=== PATIENT | male | born 1940 | race Caucasian/White ===

== ENCOUNTER 2023-03-05 13:42 | Outpatient (CLI) | payer MEDICARE, OTHER, SELFPAY | END 2023-03-05 13:43 | disposition home or self-care (01) | LOC: OP CLINIC 13:44 | PROVIDERS: PCP Family Medicine; Visit Provider Internal Medicine Gastroenterology | DX: Z12.11 Encounter for screening for malignant neoplasm of colon (principal); K63.5 Polyp of colon; Q43.8 Other specified congenital malformations of intestine; Z86.010 Personal history of colon polyps | CPT/HCPCS: 45380; 88305; J2250; J3010 ==

== ENCOUNTER 2023-11-14 08:18 | Emergency (ER) | payer MEDICARE, OTHER, SELFPAY ==
[2023-11-14] VITALS (25 sets, daily range): BP systolic 123–137; BP diastolic 72–93; PULSE 51–61; RESP 18; TEMP 36.1; O2SAT 97–100; BMI 23.2
--- NOTE | 2023-11-14 08:51 | XR_ITS ---
Patient: ISRAEL SMITH Facility:?[facility] Patient ID:?[id number] Site Patient ID:?[id number] Site :?[id number] Study:?XRay-Chest 1V-11/14/2023 9:10:11 AM Ordering Physician:?DR. ZARATE Final Report: Indication: Chest pain, low energy. Technique: One view(s) of the chest. Comparison: None available. Findings: Tortuous descending thoracic aorta. Otherwise normal cardiomediastinal silhouette and pulmonary vasculature. Lungs are well inflated and clear. No focal consolidation, pleural effusion or pneumothorax. No acute osseous abnormality. Impression: No acute cardiopulmonary abnormality identified. Dictated by Gisselle Moffett MD @ 11/14/2023 9:15:44 AM Signed by:?Gisselle Moffett MD @11/14/2023 9:15:44 AM (Electronic Signature)
--- NOTE | 2023-11-14 08:52 | ED_ITS ---
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 He reports that he had a heart attack in 2018, had a single stent, there was another not a lot of other significant blockage noted at that time. He had this done at [facility] to [facility]. The patient reports the last 3 weeks he has had increasing dizziness some mild upper chest discomfort with activity. Sometimes he can work through the discomfort and get better with continued activity, sometimes it he will sit down and rest and it will be relieved. Has no leg swelling, or edema cook. He feels a little bit lightheaded at times when this happens as well no diaphoresis, no neck pain arm pain no radiation of discomfort. He has had no real follow-up stress testing since his stent placement. He does have high cholesterol is controlled with a statin. Does have family history in with his mother. He is nondiabetic. Related Data Allergies Allergy/AdvReac Type Severity Reaction Status Date / Time ciprofloxacin [From Cipro] Allergy Verified 11/14/23 08:36 Review of Systems Status of ROS: Reports: 6 or more systems reviewed and unremarkable except as noted in History and below PFSH PFSH Social History Non-prescribed substance use: denies use Exam Narrative: Exam Narrative: Objective: His vital signs are within normal limits Alert or x3 no distress, he feels just a little lightheaded today, but no chest pain no breathing difficulty HEENT is unremarkable no facial asymmetry mouth clear neck is supple chest is clear no rales or wheezing Heart rhythm regular 2/6 systolic murmur occasional ectopic beat noted Abdomen benign soft nontender no passing megaly Extremities are no edema neurologic nonfocal Neurologic is nonfocal upper extremities. Const: Vital Signs, click to edit/add: Vital Signs - 24 hr 11/14/23 08:28 11/14/23 08:38 11/14/23 08:45 Temperature 97 F L Pulse Rate 59 L 58 L Pulse Rate [Pulse Oximeter] 61 Respiratory Rate 18 Blood Pressure Blood Pressure [Le ft Upper Arm] 137/81 Pulse Oximetry 100 100 99 Oxygen Delivery Me thod Room Air 11/14/23 08:50 11/14/23 09:01 11/14/23 09:02 Temperature Pulse Rate 53 L 57 L Pulse Rate [Pulse Oximeter] Respiratory Rate Blood Pressure 132/72 Blood Pressure [Le ft Upper Arm] Pulse Oximetry 99 97 99 Oxygen Delivery Me thod 11/14/23 09:03 11/14/23 09:15 11/14/23 09:30 Temperature Pulse Rate 60 56 L 55 L Pulse Rate [Pulse Oximeter] Respiratory Rate Blood Pressure Blood Pressure [Le ft Upper Arm] Pulse Oximetry 98 97 98 Oxygen Delivery Me thod 11/14/23 09:31 11/14/23 09:45 11/14/23 10:00 Temperature Pulse Rate 54 L 54 L 53 L Pulse Rate [Pulse Oximeter] Respiratory Rate Blood Pressure 123/93 H Blood Pressure [Le ft Upper Arm] Pulse Oximetry 98 100 97 Oxygen Delivery Me thod 11/14/23 10:02 11/14/23 10:03 11/14/23 10:15 Temperature Pulse Rate 54 L 54 L 52 L Pulse Rate [Pulse Oximeter] Respiratory Rate Blood Pressure 135/79 Blood Pressure [Le ft Upper Arm] Pulse Oximetry 97 98 100 Oxygen Delivery Me thod 11/14/23 10:30 11/14/23 10:31 11/14/23 10:32 Temperature Pulse Rate 51 L 54 L 53 L Pulse Rate [Pulse Oximeter] Respiratory Rate Blood Pressure 137/75 Blood Pressure [Le ft Upper Arm] Pulse Oximetry 100 99 99 Oxygen Delivery Me thod 11/14/23 10:33 11/14/23 10:34 11/14/23 10:35 Temperature Pulse Rate 55 L 55 L 54 L Pulse Rate [Pulse Oximeter] Respiratory Rate Blood Pressure Blood Pressure [Le ft Upper Arm] Pulse Oximetry 97 98 99 Oxygen Delivery Me thod 11/14/23 10:36 11/14/23 10:37 11/14/23 10:38 Temperature Pulse Rate 57 L 55 L 55 L Pulse Rate [Pulse Oximeter] Respiratory Rate Blood Pressure Blood Pressure [Le ft Upper Arm] Pulse Oximetry 99 99 99 Oxygen Delivery Me thod 11/14/23 10:39 Temperature Pulse Rate 54 L Pulse Rate [Pulse Oximeter] Respiratory Rate Blood Pressure Blood Pressure [Le ft Upper Arm] Pulse Oximetry 100 Oxygen Delivery Me thod Course Vital Signs Vital signs: Initial Vital Signs Temperature 97 F L 11/14/23 08:28 Temperature Source Temporal Artery Scan 11/14/23 08:28 Pulse Rate 61 11/14/23 08:28 Pulse Rhythm Regular 11/14/23 08:28 Respiratory Rate 18 11/14/23 08:28 Respiratory Effort Normal, Spontaneous, Non-Labored 11/14/23 08:28 Respiratory Depth Normal 11/14/23 08:28 Respiratory Pattern Normal 11/14/23 08:28 Blood Pressure 137/81 11/14/23 08:28 Blood Pressure Mean 99 11/14/23 08:28 Blood Pressure Position Supine 11/14/23 08:28 Pulse Oximetry 100 11/14/23 08:28 Oxygen Delivery Method Room Air 11/14/23 08:28 Vital Signs Temperature 97 F L 11/14/23 08:28 Pulse Rate 61 11/14/23 08:28 Respiratory Rate 18 11/14/23 08:28 Blood Pressure 137/81 11/14/23 08:28 Pulse Oximetry 100 11/14/23 08:28 Oxygen Delivery Method Room Air 11/14/23 08:28 Temperature 97 F L 11/14/23 08:28 Pulse Rate 54 L 11/14/23 10:39 Respiratory Rate 18 11/14/23 08:28 Blood Pressure 137/75 11/14/23 10:31 Pulse Oximetry 100 11/14/23 10:39 Oxygen Delivery Method Room Air 11/14/23 08:28 Medications Administered Medications: Discontinued Medications Generic Name Dose Route Start Last Admin Trade Name Freq PRN Reason Stop Dose Admin Aspirin 324 mg 11/14/23 08:50 11/14/23 09:10 Aspirin 81 Mg Tab.Chew PO 11/14/23 08:51 324 mg ONCE ONE Administration Heparin Sodium (Porcine) 4,000 unit 11/14/23 09:51 11/14/23 10:27 Heparin 5,000 Unit/0.5 Ml Inj IVP 11/14/23 09:52 4,000 unit ONCE ONE Administration Sodium Chloride 500 mls @ 500 mls/hr 11/14/23 08:50 11/14/23 10:33 0.9 % Sodium Chloride 500 Ml IV 11/14/23 09:49 Infused .Q1H ONE Infusion Heparin Sodium/Dextrose 25,000 unit in 500 mls @ 0 mls/hr 11/14/23 10:00 11/14/23 10:29 Heparin IV 950 unit/hr .Q0M LATRICE 19 mls/hr Administration Protocol Per Protocol Medical Decision Making MDM Narrative Medical decision making narrative: 83-year-old white male with a history of cardiac stenting for coronary artery disease about 5 years ago, with the report of an ME. He had this done at [facility]. Now he has had symptoms consistent with unstable angina. He is fairly asymptomatic today in terms of his chest he does feel little ligh theaded at times. Will give him some IV fluid will give him aspirin. Will check troponin, his EKG by my read today shows normal sinus rhythm left anterior fascicular block he does have some Q-waves in lead 3 but not in 2 and AVF he has no obvious ST segment changes. No lateral T-wave changes. Will get a chest x- ray as well electrolytes lab studies. Will also check a viral studies for completeness. Discussed with Cardiology I suspect the patient needs CT angiogram or angiogram in follow-up. I am concerned he has a symptoms of unstable angina. And will discuss with Cardiology as mentioned above thanks Addendum 10:00 a.m. eat initial EKG shows normal sinus rhythm questionable left anterior fascicular block no acute ST T wave changes, would recommend IV heparin, aspirin given. The patient is not having chest pain currently. Discussed with Dr. Louie at [facility] who kindly accepts in transfer for potential angiogram. Patient was in agreement. Patient is stable for transfer. Patient has a high likelihood of having coronary disease and I think and entered angiogram would be the appropriate study as did Dr. Louie in consultation. Will start IV heparin, aspirin, transfer to [place] when able. Dr. Louie accepting on half on behalf of the hospitalist Lab Data Labs: Lab Results 11/14/23 Range/Units 08:58 WBC 4.20 L (4.50-11.00) K/uL RBC 4.10 L (4.30-5.90) m/uL Hgb 13.4 L (13.5-17.5) gm/dL Hct 41.2 (37.0-53.0) % MCV 101 H (80-100) fL MCH 33 (26-34) pg MCHC 33 (32-36) gm/dL RDW Coeff of Dung 13.1 (11.5-15.5) % Plt Count 125 L (140-440) K/uL Neut % (Auto) 63.8 (42.0-72.0) % Lymph % (Auto) 19.3 L (20-44) % Wythe % (Auto) 12.1 H (0.0-11.0) % Eos % (Auto) 4.3 (0.0-7.0) % Baso % (Auto) 0.5 (0.0-3.0) % Neut # (Auto) 2.70 (1.7-7.0) K/uL Lymph # (Auto) 0.80 L (0.90-2.90) K/uL Wythe # (Auto) 0.50 (0.00-0.90) K/UL Eos # (Auto) 0.20 (0.00-0.50) K/uL Baso # (Auto) 0.00 (0.00-0.30) K/uL Abs Immat Gran (auto) 0.00 (0.00-0.30) K/uL Imm/Tot Granulo (auto) 0.0 % INR 1.03 (0.91-1.10) APTT 30 (23-33) Seconds Sodium 139 (135-149) mmol/L Potassium 4.4 (3.6-5.1) mmol/L Chloride 102 (96-114) mmol/L Carbon Dioxide 29 (20-32) mmol/L Anion Gap 8 (7-15) mEq/L BUN 21 (7-30) mg/dL Creatinine 1.0 (0.5-1.5) mg/dL Estimated Creat Clear 65.42 Estimated GFR 76 ml/min Glucose 84 (60-115) mg/dL Calcium 9.6 (8.4-10.6) mg/dL Total Bilirubin 1.0 (0.1-1.5) mg/dL Direct Bilirubin 0.1 (0.0-0.5) mg/dL AST 30 (12-35) U/L ALT 17 (4-50) U/L Alkaline Phosphatase 48 (40-150) U/L Troponin I < 0.01 L (0.01-0.04) ng/mL C-Reactive Protein < 0.5 L (0.5-1.0) mg/dL NT-Pro-B Natriuret Pep 257 pg/mL Total Protein 6.8 (6.0-8.3) g/dL Albumin 4.1 (3.3-5.0) g/dL SARS-CoV-2 (PCR) Negative SARS-CoV-2 (Negative) Influenza Type A (PCR) Negative PCR FLU A (Negative) Influenza Type B (PCR) Negative PCR FLU B (Negative) RSV (PCR) Negative PCR RSV (Negative) POC Troponin I 0.01 (0.01-0.04) ng/ml Discharge Plan Discharge Clinical Impression: Chest pain, Unstable angina Patient Disposition: [facility] Condition: Stable Stand Alone Forms: MyHealth Info Instructions
[2023-11-14] MEDS: ASPIRIN 81 MG TAB.CHEW 324 MG PO (09:10)
[2023-11-14 09:11] LABS: Basophils Percent Auto 0.5 % (0.0-3.0); Eosinophils Percent Auto 4.3 % (0.0-7.0); Hematocrit 41.2 % (37.0-53.0); Hemoglobin* 13.4 gm/dL (13.5-17.5); Lymphocytes Percent Auto 19.3 % (20-44); Mean Corpuscular HGB Conc 33 gm/dL (32-36); Mean Corpuscular Hemoglobin 33 pg (26-34); Mean Corpuscular Volume 101 fL (80-100); Monocytes Percent Auto 12.1 % (0.0-11.0); Neutrophils Percent Auto 63.8 % (42.0-72.0); Platelet Count* 125 K/uL (140-440); RDW Coefficient of Variation % 13.1 % (11.5-15.5)
[2023-11-14 09:12] LABS: Slide Review Reflex No
[2023-11-14] MEDS: 0.9 % SODIUM CHLORIDE 500 ML 500 ML IV (09:20)
[2023-11-14 09:23] LABS: Troponin, Point-of-Care* 0.01 ng/ml (0.01-0.04)
[2023-11-14 09:46] LABS: Albumin* 4.1 g/dL (3.3-5.0); Chloride* 102 mmol/L (96-114)
[2023-11-14 09:47] LABS: Potassium* 4.4 mmol/L (3.6-5.1); Sodium* 139 mmol/L (135-149)
[2023-11-14 09:48] LABS: PCR FLU A Negative PCR FLU A (Negative); PCR FLU B Negative PCR FLU B (Negative); PCR RSV Negative PCR RSV (Negative); SARS PCR* Negative SARS-CoV-2 (Negative)
[2023-11-14 09:49] LABS: Anion Gap 8 mEq/L (7-15); Aspartate Amino Transferase* 30 U/L (12-35); Bilirubin Direct* 0.1 mg/dL (0.0-0.5); Carbon Dioxide* 29 mmol/L (20-32); Est. Creatinine Clearance* 65.42; Estimated Glomerular Filt Rate 76 ml/min; Total Protein* 6.8 g/dL (6.0-8.3)
[2023-11-14 09:50] LABS: Alanine Aminotransferase* 17 U/L (4-50); Alkaline Phosphatase* 48 U/L (40-150); Blood Urea Nitrogen* 21 mg/dL (7-30); Calcium* 9.6 mg/dL (8.4-10.6); Glucose* 84 mg/dL (60-115)
[2023-11-14 09:54] LABS: C Reactive Protein* < 0.5 mg/dL (0.5-1.0)
[2023-11-14 10:00] LABS: NT Pro B Type NatriureticPept* 257 pg/mL
[2023-11-14] MEDS: HEPARIN 5,000 UNIT/0.5 ML INJ 4000 UNIT IVP (10:27)
[2023-11-14 10:28] LABS: Troponin I* < 0.01 ng/mL (0.01-0.04)
[2023-11-14 10:29] LABS: INR 1.03 (0.91-1.10); Prothrombin Time 14.2 Seconds
[2023-11-14] MEDS: HEPARIN 25,000 UNIT/500 ML BAG 19 UNIT IV (10:29)
[2023-11-14 10:30] LABS: Partial Thromboplastin Time* 30 Seconds (23-33)
== END 2023-11-14 10:45 | disposition short-term general hospital (02) ==
PROVIDERS: Emergency Provider Family Medicine; PCP Family Medicine
DX: R07.9 Chest pain, unspecified (principal); I20.0 Unstable angina
CPT/HCPCS: 36415; 71045; 80048; 80076; 83880; 84484; 85025; 85610; 85730; 86140; 87631; 93005; 94761; 99284; 99285; A9270; J1644; J7030

== ENCOUNTER 2023-11-14 10:38 | Outpatient (CLI) | payer MEDICARE, OTHER, SELFPAY | END 2023-11-14 10:39 | disposition home or self-care (01) | LOC: AMB 11-22 22:40 | PROVIDERS: PCP Family Medicine; Visit Provider Family Medicine | DX: I20.0 Unstable angina (principal) | CPT/HCPCS: A0425; A0434 ==

== ENCOUNTER 2023-12-11 14:30 | Outpatient (RCR) | payer MEDICARE, OTHER, SELFPAY | END 2024-04-09 23:59 | disposition home or self-care (01) | PROVIDERS: PCP Family Medicine; Visit Provider Family Medicine | DX: M54.9 Dorsalgia, unspecified (principal); R29.3 Abnormal posture; S39.012A Strain of muscle, fascia and tendon of lower back, initial encounter; Z51.89 Encounter for other specified aftercare | CPT/HCPCS: 97110; 97140; 97162 ==

== ENCOUNTER 2025-01-22 06:47 | Day surgery (SDC) | payer MEDICARE, OTHER, SELFPAY ==
[2025-01-22] VITALS (13 sets, daily range): BP systolic 117–134; BP diastolic 65–88; PULSE 47–70; RESP 11–23; TEMP 36.6–36.7; O2SAT 96–100; BMI 24.2
[2025-01-22] MEDS: LACTATED RINGERS 1000 ML 1,000 ML 100 ML IV (07:00)
[2025-01-22] MEDS: SODIUM CHLORIDE 0.9 % (FLUSH) 10 ML SYRINGE IVF (07:30)
--- NOTE | 2025-01-22 08:20 | P.GSOP_ITS ---
Operative Note Date of procedure: 01/22/25 Pre-op diagnosis: Right inguinal hernia Post-op diagnosis: Same Type of Procedure: Laparoscopic right inguinal hernia repair with mesh Indications: The patient is an 84-year-old male with a history of a right inguinal hernia who developed an increasingly symptomatic right inguinal hernia. We discussed options and he elected to proceed with repair. Procedure Description: After discussing the risks and benefits of the procedure, the patient signed informed consent.? The operative site was marked and the patient was brought to the operating room and placed on the operating table in supine position.? Care was taken to pad the patient's pressure points.?? The patient was then intubated by anesthesia.?? The operative site was then prepped and draped in the usual sterile fashion.? A time-out was then performed. A curvilinear incision was made below the umbilicus. Dissection was carried down to subcutaneous tissue until the anterior rectus fascia was encountered. This was incised off the midline on the right. The rectus muscle fibers were then retracted exposing the posterior fascia. A port with a dissecting balloon was then introduced into the pre-preperitoneal space. This was inflated under direct vision. The balloon was deflated, removed, and a 10 mm working port was placed. The space was insufflated and a 10 mm 30-degree scope was then advanced into the space. Two 5 mm ports were placed in the midline under direct vision. Dissection began on the right side. The patient was noted to have a direct hernia. I started by dissecting laterally. There was no indirect defect noted. The peritoneum was dissected free from the cord structures. There was a very small cord lipoma which was reduced. My dissection then turned medially, reducing the direct hernia. Jarad's ligament and the pubic bone were exposed medially. F ollowing this, a piece of Bard 3DMax mesh for the appropriate side was placed into the abdomen. This was positioned with the marker pointed medially. A Tacker was used to attach the mesh medially at Jarad's ligament and 1 tack superomedially to the direct defect, with care to avoid the epigastric vessels and stay above the inguinal ligament. Once this was completed the mesh was held flat in position while the abdomen was desufflated. 10 mL of 0.5% Marcaine were instilled into the preperitoneal space through a port. The ports were removed. The fascia from the infraumbilical port was closed with 0 Vicryl. The skin incisions were closed with absorbable subcuticular suture. Sterile dressings were then applied. The scrotum was examined to ensure that both testicles were down. Instrument sponge and needle counts were correct at the end of the case. ? The patient was then woken and transported to the recovery area in stable condition. ? The patient tolerated the procedure well. Findings: Direct right inguinal hernia. Anesthesia: GETA Surgeon: Vicky Hampton MD Estimated blood loss (mL): 5 Condition: stable Disposition: PACU
--- NOTE | 2025-01-22 08:20 | W.PM.H&PU ---
History & Physical Update History & Physical Update H&P Reviewed and patient assessed: No changes noted
[2025-01-22] MEDS: CEFAZOLIN 1 GM inj IVP (08:25)
[2025-01-22] MEDS: BUPIVACAINE 0.25% 30 ML 25 ML INJECTION (09:00)
--- NOTE | 2025-01-22 09:27 | P.ANES_ITS ---
Anesthesia Charges Start Date/Time Anesthesia Start Date: 01/22/25 Anesthesia Start Time: 08:17 Stop Date/Time Anesthesia Stop Date: 01/22/25 Anesthesia Stop Time: 09:21 Summary Extremes of Age - Over 70 or under 1: WATER PUMPING STATION ENGINEER Coding CPT Codes CPT Codes: ANESTH SURG LOWER ABDOMEN - 82812 ([id number]) P3 - PATIENT W/SEVERE SYS DISEASE, QK - FABRIC AWNING REPAIRER 2-4 CNCRNT ANES PROC, QX - WATER PUMPING STATION ENGINEER SVC W/ MD MED DIRECTION Additional Codes: Summary - Extremes of Age - Over 70 or under 1: WATER PUMPING STATION ENGINEER ([id number])
--- NOTE | 2025-01-22 09:27 | P.ANES_ITS ---
Anesthesia Charges Start Date/Time Anesthesia Start Date: 01/22/25 Anesthesia Start Time: 08:17 Stop Date/Time Anesthesia Stop Date: 01/22/25 Anesthesia Stop Time: 09:21 Summary Extremes of Age - Over 70 or under 1: MDA Coding CPT Codes CPT Codes: ANESTH SURG LOWER ABDOMEN - 12304 ([id number]) P3 - PATIENT W/SEVERE SYS DISEASE, QK - MAINTENANCE MACHINE REPAIRER 2-4 CNCRNT ANES PROC, QX - SECURITY MESSENGER SVC W/ MD MED DIRECTION Additional Codes: Summary - Extremes of Age - Over 70 or under 1: MDA ([id number])
--- NOTE | 2025-01-22 09:27 | W.ANESCHARGE ---
Anesthesia Charges Start Date/Time Anesthesia Start Date: 01/22/25 Anesthesia Start Time: 08:17 Stop Date/Time Anesthesia Stop Date: 01/22/25 Anesthesia Stop Time: 09:21 Summary Extremes of Age - Over 70 or under 1: MDA Coding CPT Codes CPT Codes: ANESTH SURG LOWER ABDOMEN - 57694 ([id number]) P3 - PATIENT W/SEVERE SYS DISEASE, QK - FIELD CROP FARMWORKER 2-4 CNCRNT ANES PROC, QX - AIRCRAFT REFUELER SVC W/ MD MED DIRECTION Additional Codes: Summary - Extremes of Age - Over 70 or under 1: MDA ([id number])
--- NOTE | 2025-01-22 09:27 | W.ANESCHARGE ---
Anesthesia Charges Start Date/Time Anesthesia Start Date: 01/22/25 Anesthesia Start Time: 08:17 Stop Date/Time Anesthesia Stop Date: 01/22/25 Anesthesia Stop Time: 09:21 Summary Extremes of Age - Over 70 or under 1: FREIGHT CHECKER Coding CPT Codes CPT Codes: ANESTH SURG LOWER ABDOMEN - 50437 ([id number]) P3 - PATIENT W/SEVERE SYS DISEASE, QK - MODEL BUILDER 2-4 CNCRNT ANES PROC, QX - FREIGHT CHECKER SVC W/ MD MED DIRECTION Additional Codes: Summary - Extremes of Age - Over 70 or under 1: FREIGHT CHECKER ([id number])
== END 2025-01-22 11:15 | disposition home or self-care (01) ==
PROVIDERS: PCP Family Medicine; Visit Provider Surgery
PROC: (CPT 49650; principal; 2025-01-22 08:00)
DX: K40.90 Unilateral inguinal hernia, without obstruction or gangrene, not specified as recurrent (principal)
CPT/HCPCS: 49650; 00840; 99100; C1781; J0665; J0690; J1100; J2371; J2405; J2704; J3010; J3490; J7120

== ENCOUNTER 2025-09-04 05:58 | Emergency (ER) | payer MEDICARE, OTHER, SELFPAY ==
[2025-09-04] VITALS (18 sets, daily range): BP systolic 119–134; BP diastolic 62–74; PULSE 54–63; RESP 8–20; TEMP 35.9; O2SAT 91–100; BMI 24.0
--- OUTSIDE RECORDS SUMMARY | 2025-09-04 06:00 | XMS_ITS | Clinical Summary ---
Author Organization [facility] Address [address] [place] [address] Care Team Providers Care [employer] Receiver Name Role Phone Margie Akers MD Unavailable + Sascha Trejo MD Unavailable [phone] Maurice Savage MD Primary Care Provider Allergies Active AllergyReactionsCriticalityNoted FmdmTlorveejMcrvobbkhbuyqFygcl74/07/2007 Medications MedicationSigDispense QuantityRefillsLast FilledStart DateEnd DateStatus nitroglycerin (NITROSTAT) 0.4 mg sublingual tablet Indications:NSTEMI (non-ST elevated myocardial infarction) (HC)Place 1 tablet under the tongue every 5 minutes if needed. 25 tablet. 08/27/2020Active cholecalciferol (VITAMIN D3) 2,000 unit capsule 08/30/2020Active aspirin chewable (Sulema Chewable Aspirin) 81 mg chewable tablet Indications:CAD in [place] arteryChew 1 Tablet (81 mg) by mouth once daily.0 1Active melatonin 3 mg tablet Take 3 mg by mouth at bedtime.Active rosuvastatin (CRESTOR) 10 mg tablet Indications:Hyperlipidemia, unspecified hyperlipidemia typeTake 1 Tablet (10 mg) by mouth once daily with evening meal. 90 Tablet 5Active levothyroxine (SYNTHROID) 75 mcg tablet Indications:Hypothyroidism, unspecified typeTake 1 Tablet (75 mcg) by mouth before breakfast. 90 Tablet 5Active Active Problems ProblemNoted DateDiagnosed DateCAD (coronary artery disease)11/14/2023Insomnia, qlnpeaynur28/31/2022Bilateral asymmetric sensorineural hearing loss02/17/2019 NSTEMI 08/02/2018, SB mid LAD.08/04/2018BPH (benign prostatic hyperplasia) 08/01/2017Unspecified ujdimvzdqypnbz58/21/1256Egbtixivdhavhai99/07/2010 Overview (05/24/2010): Calcium oxalate stones. Benign neoplasm of colon09/21/2009 Overview (03/07/2023): Colonoscopy 08/2009 polyp repeat in 5 years Colonoscopy 09/2014 normal repeat in 5 years Colonoscopy 11/2019 multiple polyps, repeat in 3 years, PEG 8L Colonoscopy 02/2023 2-TA, lymphocytic colitis, repeat in 5 years, PEG 8L Dysthymic ziyybpzn48/16/2009Displacement of lumbar intervertebral disc without szrdxulthi19/04/2009Spondylolisthesis L3-Central spinal stenosis 11/18/2008 Resolved Problems ProblemNoted DateDiagnosed DateResolved DateInguinal hernia, right01/15/2025 07/21/2025Dyspnea on emjprxvp01/28/95243409/17/2023Leg DVT (deep venous thromboembolism), acute, leftNeurogenic claudication Hypoxia12Prolonged depressive reaction Encounters DateTypeDepartmentCare NicfXpanzzbywab51/04/2025 10:05 AM CSTOffice Visit [facility] [address] [place] [address] Maurice Savage MD Medicare ANNUAL (subsequent) Visit (85 year old)07/21/20257610Vixzyo16/30/2025Travel 06/05/2025 9:00 AM CDTOffice Visit [facility] [address] [place] [address] Lazarus Anaya [employer] Hearing Aid (Fitting)06/05/2025Travelfrom Last 3 Months Immunizations ImmunizationAdministration DatesNext DueAmb Influenza, Inactivated AIIV4 (Age 65+ Years) Preserv Free06/08/2020COVID-19 VACCINE SPIKEVAX (MODERNA 50MCG/0.5ML) 12YO+ PFS5COVID-19 vaccine (Moderna 50mcg/0.5mL) 12YO+ BIVALENT PF, MDV 03/09/2023,2COVID-19 vaccine (Octane5 International 30mcg/0.3mL) PF, MDV 11/20/2020,10/30/2020Influenza A (H1N1), Cnzhcbciybd94/24/2009Influenza A (H1N1), Inactivated (Age >=3 Years)09/09/2009Influenza, High-dose Inactivated 06/19/2025,06/17/2024,06/26/2018,05/31/2018,06/25/2017,06/01/2014Influenza, High-dose Quadrivalent Ticfgivnepo66/05/2023Influenza, IIV3 (Age >=3 years) 06/21/2015,06/25/2014,06/24/2013,05/27/2013,06/17/2012,06/20/2011,06/14/2010, 08/02/2009,07/14/2008,07/19/2007,07/19/2005,2003Influenza, IIV4 (=>6mos) MDV1Influenza, Inactivated AIIV4 (Age 65+ Years) Preserv Free06/06/2022 ,05/30/2021Influenza, Whole Virus06/27/2017Pneumococcal Conj 20-valent (Prevnar 20)07/17/2023neumococcal Poly,23-Valent (Pneumovax)07/27/2008Pneumococcal conj 13-Valent (Prevnar 13)08/17/2014RSV, Bivalent Vaccine Reconstituted (Abrysvo 120MCG/0.5mL)07/28/2023Td (Age >=7 Years)07/20/2006Tdap01/13/2022,08/08/2011 Zoster (Shingrix-RZV, recombinant)05/17/2019,03/01/2019Zoster (Zostavax-ZVL, live)07/24/2007 Family History Medical HistoryRelationNameCommentsCancerBrother 1TesticlePsychiatric illness Brother 1schizophreniaHeart failureBrother 2John Zaid Sudermannmitral valve prolapseHeart failureBrother 3Paul K. Sudermannmitral valve repairPneumonia FatherJacob Sudermanndied at 71 sepsis probablyThyroid DiseaseFatherJacob Sudermanntook thyroid medication for a timeHeart failureMaternal Grandfather Bran Bylerdied of heart disease 196OsteoarthritisMaternal GrandmotherNancy Gonzalo BylerCancerMotherHilda Aiyana SudermannUterineCancer-ovarianMotherHilda Aiyana Sudermanncancer of the uterusHeart failureMotherHilda Aiyana Sudermanndied at 98Hip fractureMotherHilda Aiyana SudermannOsteoarthritisMotherHilda Aiyana SudermannPolymyalgia rheumaticaMotherHilda Aiyana SudermannRheum arthritisMother Mimi Aiyana SudermannPMRDiabetesNo Family HistoryHeart DiseaseNo Family History HypertensionNo Family HistoryStrokeNo Family HistoryRelationNameStatusComments Brother 1DeceasedBrother 2John Zaid SudermannAliveBrother 3Paul K. Sudermann AliveFatherJacob SudermannAliveUnknown respiratory infectionMaternal Grandfather Bran BylerAliveMaternal GrandmotherNancy Gonzalo BylerAliveMotherHilda Aiyana SudermannAlive Social History Tobacco UseTypesPacks/DayYears UsedDateSmoking Tobacco: NeverSmokeless Tobacco: Never Tobacco Cessation:Counseling Given: No Alcohol UseStandard Drinks/WeekCommentsNot Currently0 (1 standard drink = 0.6 oz pure alcohol)occasional winePHQ-2AnswerDate RecordedPHQ-2 TOTAL VFXOV38009/20/2024 Social ConnectionsAnswerDate RecordedDo you often feel lonely or isolated from those around you?lcohol UseAnswerDate RecordedHow often do you have a drink containing alcohol?How many drinks containing alcohol do you have on a typical day when you are drinking?011/04/2025How often do you have five or more drinks on one occasion?Financial Resource StrainAnswer Date RecordedDifficulty of Paying Living Nhoswcjf830/13/2025Difficulty of Paying Living ExpensesNot on file12/28/2024Food InsecurityAnswerDate RecordedDo you worry your food will run out before you are able to buy more? Transportation NeedsAnswerDate RecordedDoes lack of transportation keep you from medical appointments?Does lack of transportation keep you from work, meetings or getting things that you need?Housing StabilityAnswerDate RecordedWhat is your housing situation today?Interpersonal Safety AnswerDate RecordedAre you being hit, kicked, pushed or yelled at (see row info)?No11/14/2023Interpersonal Safety Abuse 12 - 18Not on file11/14/2023 Interpersonal Safety Ambulatory VulnerabilityNot on file11/14/2023Utilities AnswerDate RecordedDo you have trouble paying for utilities (for example, heat, electricity, water, phone)?Sex and Gender InformationValueDate RecordedSex Assigned at TxhxeRefl58/15/2021 2:23 PM CDTLegal OvpGrpg0309/30/2012 5:24 AM CSTGender EetgzwgkSond57/28/2024 5:29 PM CDTSexual OrientationChoose not to ojiabdvv70/28/2024 5:29 PM CDTOccupationIndustryJob Start DateJob End Date professorNot on fileNot on fileNot on file Last Filed Vital Signs Vital SignReadingTime TakenCommentsBlood Ucglhnkb879/7311 9:57 AM HARDWARE ASSEMBLER Sjkgq361607/21/2025 9:57 AM QLJZjivbmxqogb66.7 ??C (98.1 ??F)01/16/2025 10:00 AM CDTRespiratory Usks796201/16/2025 10:00 AM CDTOxygen Lcujbbcpqt09%07/21/2025 9:57 AM CSTInhaled Oxygen Concentration--Zyinow43.3 kg (181 lb 6.4 oz)07/21/2025 9:57 AM MLPRakzjc871.4 cm (6' 0.21)07/21/2025 9:57 AM CSTBody Mass Index24.46 07/21/2025 9:57 AM HARDWARE ASSEMBLER Plan of Treatment Health MaintenanceDue DateLast DoneCommentsCOVID-19 vaccine series ( season), 12/30/2024, 06/17/2024, Additional history exists BMI (ht and wt on same day) for age 18+, 01/16/2025, 07/18/2024, Additional history existsDepression screening for age 12+07/21/2026 07/21/2025, 07/18/2024, 07/17/2023, Additional history existsMedicare Wellness for age 65+, 07/18/2024, 07/17/2023, Additional history existsTetanus maomacl93/, 08/08/2011, 07/20/2006Zoster (shingles) series for age 50+Dghmzezbt22/31/2019, 03/01/2019, 07/24/2007 Pneumococcal series for age 50+Fcdsrsnxj07/31/2023, 08/17/2014, 07/27/2008RSV vaccine for adults or nxunjppdnXthelnmro22/11/2023Influenza VaccineCompleted 06/19/2025, 06/17/2024, 06/06/2022, Additional history existsHepatitis B series for 19+Aged OutNo longer eligible based on patient's age to complete this topic Medical Devices ImplantedTypeAreaManufacturerDevice IdentifierShelf Expiration DateModel / Serial / [id number] Matrix 2.5x10cm [place] Dbm Implanted:Qty: 1 on 07/31/2017 by Wilton Arrieta MD at Explanted:at (Quantity not on file)N/A: Spine Medtronic Spine/Ortho/09/[id number]# / [id number] / [id number] 1-4mm 60cc Medtronic Fine Canclls Freeze Dried Implanted:Qty: 1 on 07/31/2017 by Wilton Arrieta MD at Explanted:at (Quantity not on file)N/A: Spine Medtronic Spine/Ortho06/02/[id number]# / [id number] / Screw Lmbr Post 6.5x50mm Vitality Va - [id number] Implanted:Qty: 6 on 07/31/2017 by Wilton Arrieta MD at N/A: [employer]ine[employer] [id number]# / / Set Screw Lmbr 5.5-6mm Vitality Shear Off - [id number] Implanted:Qty: 6 on 07/31/2017 by Wilton Arrieta MD at N/A: [employer] [id number]# / / Tk Lmbr 70x5.5mm Vitality Cvd Titnm - [id number] Implanted:Qty: 2 on 07/31/2017 by Wilton Arrieta MD at N/A: [employer] [id number]# / / Procedures Procedure NamePriorityDate/TimeAssociated DiagnosisCommentsVITAMIN C41Gposzko 07/21/2025 10:41 AM HARDWARE ASSEMBLER B12 deficiency TSH WITH WKQFQSAxtxnhz28/04/2025 10:41 AM HARDWARE ASSEMBLER Hypothyroidism, unspecified type BASIC METABOLIC CRIFJFbsjseb59/04/2025 10:41 AM HARDWARE ASSEMBLER Coronary artery disease, unspecified vessel or lesion type, unspecified whether angina present, unspecified whether [place] or transplanted heart VITAMIN D 25 (DEFICIENCY)Wbskbyf7207/21/2025 10:41 AM HARDWARE ASSEMBLER Vitamin D deficiency LIPID PANEL W REFLEX MEASURED VFPEzuofkt33/04/2025 10:41 AM HARDWARE ASSEMBLER Hyperlipidemia, unspecified hyperlipidemia type from Last 3 Months Results * TSH WITH REFLEX (07/21/2025 10:41 AM HARDWARE ASSEMBLER)ComponentValueRef RangeTest Method Analysis TimePerformed AtPathologist SignatureTSH W/REFLEX TO FT40.630.40 - 4.50 mIU/L109/21/2024 2:26 AM CSTQUEST DIAGNOSTICSSpecimen (Source)Anatomical Location / LateralityCollection Method / VolumeCollection TimeReceived Time BloodBLOOD SPECIMEN / UnknownQuest Collect / Hsiqncv7007/21/2025 10:41 AM HARDWARE ASSEMBLER 07/21/2025 10:41 AM HARDWARE ASSEMBLER Narrative Authorizing ProviderResult TypeResult StatusRichard Lina Savage MDCHEMISTRY Final ResultPerforming OrganizationAddressCity/State/ZIP CodePhone Number [facility] [place] [id number] [place] [address], * LIPID PANEL W REFLEX MEASURED LDL (07/21/2025 10:41 AM HARDWARE ASSEMBLER)ComponentValueRef RangeTest MethodAnalysis TimePerformed AtPathologist SignatureCHOLESTEROL, HZGAR173<200 mg/dL07/22/2025 5:09 AM CSTQUEST ZGZPRVEWGFPOCLLQJCTREQMC04<150 mg/dL07/22/2025 5:09 AM CSTQUEST DIAGNOSTICSHDL EYUSEHKKMMY45> OR = 40 mg/dL 07/22/2025 5:09 AM CSTQUEST DIAGNOSTICSNON HDL RBSWBIXEMSN22<130 mg/dL (calc) 07/22/2025 5:09 AM CSTQUEST DIAGNOSTICSComment: For patients with diabetes plus 1 major ASCVD risk factor, treating to a non-HDL-C goal of <100 mg/dL (LDL-C of <70 mg/dL) is considered a therapeutic option. CHOL/HDLC RATIO1.9<5.0 (calc)07/22/2025 5:09 AM CSTQUEST DIAGNOSTICS LDL-NDTDKGMIZYE81fg/dL (calc)07/22/2025 5:09 AM CSTQUEST DIAGNOSTICSComment: Reference range: <100 Desirable range <100 mg/dL for primary prevention; <70 mg/dL for patients with CHD or diabetic patients with > or = 2 CHD risk factors. LDL-C is now calculated using the Hernan calculation, which is a validated novel method providing better accuracy than the Friedewald equation in the estimation of LDL-C. Iban ROMERO et al. PATTI. 2013;310(19): 3154-7491 (http://education.Zoned Nutrition/faq/JMA809) Specimen (Source)Anatomical Location / LateralityCollection Method / Volume Collection TimeReceived TimeBloodBLOOD SPECIMEN / UnknownQuest Collect / Unknown 07/21/2025 10:41 AM CST07/21/2025 10:41 AM HARDWARE ASSEMBLER Narrative Authorizing ProviderResult TypeResult StatusRichdella Savage MDCHEMISTRY Final ResultPerforming OrganizationAddressCity/State/ZIP CodePhone Number Portal [facility] [address] [place] [address], * VITAMIN D 25 (DEFICIENCY) (07/21/2025 10:41 AM HARDWARE ASSEMBLER)ComponentValueRef RangeTest MethodAnalysis TimePerformed AtPathologist SignatureVITAMIN D,25-OH,TOTAL,IA58 30 - 100 ng/mL07/22/2025 2:36 AM CSTQUEST DIAGNOSTICSComment: Vitamin D Status ? 25-OH Vitamin D: Deficiency: <20 ng/mL Insufficiency: ? 20 - 29 ng/mL Optimal: > or = 30 ng/mL For 25-OH Vitamin D testing on patients on D2-supplementation and patients for whom quantitation of D2 and D3 fractions is required, the QuestAssureD(TM) 25-OH VIT D, (D2,D3), LC/MS/MS is recommended: order code 76431 (patients >2yrs). See Note 1 Note 1 For additional information, please refer to http://education.Zoned Nutrition/faq/STJ428 (This link is being provided for informational/ educational purposes only.) Specimen (Source)Anatomical Location / LateralityCollection Method / Volume Collection TimeReceived TimeBloodBLOOD SPECIMEN / UnknownQuest Collect / Unknown 07/21/2025 10:41 AM CST07/21/2025 10:41 AM HARDWARE ASSEMBLER Narrative Authorizing ProviderResult TypeResult StatusMaurice Savage MDSEND OUTS Final ResultPerforming OrganizationAddressCity/State/ZIP CodePhone Number Portal [facility] [address] [place] [address], * VITAMIN B12 (07/21/2025 10:41 AM HARDWARE ASSEMBLER)ComponentValueRef RangeTest Method Analysis TimePerformed AtPathologist SignatureVITAMIN [id number] - 1100 pg/mL 07/22/2025 2:26 AM CSTQUEST DIAGNOSTICSSpecimen (Source)Anatomical Location / LateralityCollection Method / VolumeCollection TimeReceived TimeBloodBLOOD SPECIMEN / UnknownQuest Collect / Tiaqkep3807/21/2025 10:41 AM CST07/21/2025 10:41 AM HARDWARE ASSEMBLER Narrative Authorizing ProviderResult TypeResult StatusRichard Lina Savage MDCHEMISTRY Final ResultPerforming OrganizationAddressCity/State/ZIP CodePhone Number [facility] [place] [id number] [place] [address], * BASIC METABOLIC PANEL (07/21/2025 10:41 AM HARDWARE ASSEMBLER)ComponentValueRef RangeTest MethodAnalysis TimePerformed AtPathologist MsxpdkzcwZNVKNS638264 - 146 mmol/L 07/22/2025 5:09 AM CSTQUEST DIAGNOSTICSPOTASSIUM5.03.5 - 5.3 mmol/L109/21/2024 5:09 AM CSTQUEST DIAGNOSTICSCARBON EQLGYXZ2727 - 32 mmol/L109/21/2024 5:09 AM CSTQUEST OYMEBDLZZOUJOQYJBA6386 - 99 mg/dL07/22/2025 5:09 AM CSTQUEST DIAGNOSTICSComment: ? Fasting reference interval CALCIUM9.68.6 - 10.3 mg/dL07/22/2025 5:09 AM CSTQUEST DIAGNOSTICSCREATININE1.19 0.70 - 1.22 mg/dL07/22/2025 5:09 AM CSTQUEST DIAGNOSTICSBUN/CREATININE RATIOSEE NOTE:6 - (calc)07/22/2025 5:09 AM CSTQUEST DIAGNOSTICSComment: ?? Not Reported: BUN and Creatinine are within ?? reference range. ? EGFR61> OR = 60 mL/min/1.17s61907/22/2025 5:09 AM CSTQUEST DIAGNOSTICSUREA NITROGEN (BUN)177 - 25 mg/dL07/22/2025 5:09 AM CSTQUEST DIAGNOSTICSELECTROLYTE DEFCNNC68 - 17 mmol/L (calc)07/22/2025 5:09 AM CSTQUEST PCWEVBPQZEBRFCGOONJ94243 - 110 mmol/L109/21/2024 5:09 AM CSTQUEST DIAGNOSTICSSpecimen (Source)Anatomical Location / LateralityCollection Method / VolumeCollection TimeReceived TimeBlood BLOOD SPECIMEN / UnknownQuest Collect / Onxvhzg8707/21/2025 10:41 AM CST07/21/2025 10:41 AM HARDWARE ASSEMBLER Narrative Authorizing ProviderResult TypeResult StatusRichdella Savage MDCHEMISTRY Final ResultPerforming OrganizationAddressCity/State/ZIP CodePhone Number [facility] [address] [place] [address], [place] [phone] from Last 3 Months Insurance Advance Directives * Full Code (Latest Code Status on File) Date ActivatedDate InactivatedComments11/14/2023 11:57 AM11/15/2023 5:23 PM QuestionAnswerCommentsCode Status Discussion:* Reviewed Preferences * Full Code Date ActivatedDate RklrsjqlqvaPjqlqekl97/16/2018 10:31 PM08/05/2018 4:04 PM * Full Code Date ActivatedDate IfeveqkxpzlMfwymhaq93/14/2017 7:34 PM08/03/2017 3:43 PM Care Teams Team MemberRelationshipSpecialtyStart DateEnd Date Maurice Savage MD [address] [place] [address] PCP - GeneralFamily Practice12/02/20 Margie Akers MD [address] [place] [address] Fgxkytsbuvx64/29/13 Sascha Trejo MD [address] [place] [address] Sports Jqealdcx72/29/13
--- NOTE | 2025-09-04 06:03 | ED_ITS ---
HPI - General Adult General Time Seen by Provider: 06:03 <Mati Galeana MD - Last Filed: 09/10/25 15:43> Date Seen: 09/04/25 <Mati Galeana MD - Last Filed: 09/10/25 15:43> Chief complaint: Nausea/Vomiting <Mati Galeana MD - Last Filed: 09/10/25 15:43> Stated complaint: Vomiting <Mati Galeana MD - Last Filed: 09/10/25 15:43> Time Seen by Provider: 09/04/25 06:03 <Mati Galeana MD - Last Filed: 09/10/25 15:43> Source: patient and family <Mati Galeana MD - Last Filed: 09/10/25 15:43> Mode of arrival: ambulatory <Mati Galeana MD - Last Filed: 09/10/25 15:43> Limitations: no limitations <Mati Galeana MD - Last Filed: 09/10/25 15:43> History of Present Illness HPI narrative: 85-year-old male who presents today with vomiting. Patient notes abrupt onset of vertigo and vomiting last night about 10:00 p.m.. No headache, no tinnitus, no chest pain, no shortness of breath, no abdominal pain, no diarrhea. These symptoms have been constant since that time. His dizziness is room spinning, present at rest but worse with movement. It has been constant since last night although seems little better this morning. He did not take anything for symptoms. He does have a history of vertigo but usually that is only with head movement. <Mati Galeana MD - Last Filed: 09/10/25 15:43> Related Data Home medications: Home Medications ?Medication ?Instructions ?Recorded ?Confirmed aspirin 81 mg capsule 81 mg PO DAILY 01/20/2508/17 cholecalciferol (vitamin D3) 50 2,000 unit PO DAILY 09/04/25 mcg (2,000 unit) capsule levothyroxine 75 mcg tablet 75 mcg PO DAILY 01/20/25 1 11/05/24 rosuvastatin 10 mg tablet 10 mg PO QPM 01/20/25 melatonin 3 mg capsule 3 mg PO HS 09/04/25 09/04/25 <Mati Galeana MD - Last Filed: 09/10/25 15:43> Allergies/adverse reactions: Allergies Allergy/AdvReac Type Severity Reaction Status Date / Time ciprofloxacin (From Cipro) Allergy Verified 09/04/25 07:53 <Mati Galeana MD - Last Filed: 09/10/25 15:43> [facility] Medical History: Medical History (Updated 09/04/25 @ 09:35 by John Rodriguez MD) Inguinal hernia, right ?K40.90 - Unilateral inguinal hernia, without obstruction or gangrene, not specified as recurrent (ICD-10) CAD (coronary artery disease) ?I25.10 - Atherosclerotic heart disease of [place] coronary artery without angina pectoris (ICD-10) Bilateral hearing loss ?H91.93 - Unspecified hearing loss, bilateral (ICD-10) NSTEMI (non-ST elevated myocardial infarction) ?I21.4 - Non-ST elevation (NSTEMI) myocardial infarction (ICD-10) BPH (benign prostatic hyperplasia) ?N40.0 - Benign prostatic hyperplasia without lower urinary tract symptoms (ICD-10) Unspecified hypothyroidism ?E03.9 - Hypothyroidism, unspecified (ICD-10) Nephrolithiasis ?N20.0 - Calculus of kidney (ICD-10) Dysthymic disorder ?F34.1 - Dysthymic disorder (ICD-10) Central spinal stenosis ?M48.00 - Spinal stenosis, site unspecified (ICD-10) Spondylolisthesis at L3-L4 level ?M43.16 - Spondylolisthesis, lumbar region (ICD-10) 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 ?M51.06 - Intervertebral disc disorders with myelopathy, lumbar region (ICD- 10) <Mati Galeana MD - Last Filed: 09/10/25 15:43> Surgical History: Surgical History (Updated 01/20/25 @ 12:16 by Nory Souza RN) S/P TURP ?Z90.79 - Acquired absence of other genital organ(s) (ICD-10) S/P tonsillectomy and adenoidectomy ?Z90.89 - Acquired absence of other organs (ICD-10) History of lumbar surgery ?Z98.890 - Other specified postprocedural states (ICD-10) <Mati Galeana MD - Last Filed: 09/10/25 15:43> Social History: Social History Smoking Status: Never smoker Do you use any of these nicotine containing products: None How often do you have a drink containing alcohol: never How often do you have six or more drinks on one occasion: Never AUDIT-C Alcohol total score: 0 Non-prescribed substance use: denies use Caffeine: Yes service: No <Mati Galeana MD - Last Filed: 09/10/25 15:43> Exam Narrative: Exam Narrative: General: Well-developed and well-nourished, no acute distress Head: Atraumatic and normocephalic Eyes: Pupils are equal reactive, extraocular motions intact, conjunctiva clear ENT: External nose and ears are normal, posterior pharynx without erythema or exudate Neck: No midline cervical tenderness, full spontaneous range of motion the neck, trachea midline, no adenopathy Heart: Regular rate and rhythm no murmurs or thrills Lungs: Clear to auscultation bilaterally without wheezes or crackles Abdomen: Soft, nontender, nondistended with active bowel sounds Musculoskeletal: No tenderness, deformity, or edema Neurologic: Awake, alert, and oriented x3, no gross focal neurologic deficits, cranial nerves intact as tested. Patient prefers to lay with eyes closed, ve rtigo intensifies with turning head to the left and also to the right to a lesser extent. Psych: Mood and affect are appropriate Skin: No rashes <Mati Galeana MD - Last Filed: 09/10/25 15:43> Const: Vital Signs, click to edit/add: Vital Signs - 24 hr 09/04/25 06:10 09/04/25 06:57 09/04/25 07:02 Temperature 96.6 F L Pulse Rate 56 L 56 L Pulse Rate [Right Pulse Oximeter] 62 Respiratory Rate 17 18 8 L Blood Pressure 123/69 119/74 Blood Pressure [Ri ght Upper Arm] 134/72 Pulse Oximetry 98 97 97 Oxygen Delivery Me thod Room Air 09/04/25 07:03 09/04/25 07:15 09/04/25 07:52 Temperature Pulse Rate 56 L 59 L 60 Pulse Rate [Right Pulse Oximeter] Respiratory Rate 20 20 Blood Pressure Blood Pressure [Ri ght Upper Arm] Pulse Oximetry 99 96 99 Oxygen Delivery Me thod 09/04/25 07:53 09/04/25 08:00 09/04/25 08:02 Temperature Pulse Rate 59 L 58 L 63 Pulse Rate [Right Pulse Oximeter] Respiratory Rate 16 Blood Pressure 134/62 133/68 Blood Pressure [Ri ght Upper Arm] Pulse Oximetry 100 98 91 Oxygen Delivery Me thod 09/04/25 08:15 09/04/25 08:30 09/04/25 08:32 Temperature Pulse Rate 56 L 55 L 55 L Pulse Rate [Right Pulse Oximeter] Respiratory Rate 17 20 Blood Pressure 123/69 Blood Pressure [Ri ght Upper Arm] Pulse Oximetry 98 95 96 Oxygen Delivery Me thod <Mati Galeana MD - Last Filed: 09/10/25 15:43> Vital Signs, click to edit/add: Vital Signs - 24 hr 09/04/25 06:10 09/04/25 06:57 09/04/25 07:02 Temperature 96.6 F L Pulse Rate 56 L 56 L Pulse Rate [Right Pulse Oximeter] 62 Respiratory Rate 17 18 8 L Blood Pressure 123/69 119/74 Blood Pressure [Ri ght Upper Arm] 134/72 Pulse Oximetry 98 97 97 Oxygen Delivery Me thod Room Air 09/04/25 07:03 09/04/25 07:15 09/04/25 07:52 Temperature Pulse Rate 56 L 59 L 60 Pulse Rate [Right Pulse Oximeter] Respiratory Rate 20 20 Blood Pressure Blood Pressure [Ri ght Upper Arm] Pulse Oximetry 99 96 99 Oxygen Delivery Me thod 09/04/25 07:53 09/04/25 08:00 09/04/25 08:02 Temperature Pulse Rate 59 L 58 L 63 Pulse Rate [Right Pulse Oximeter] Respiratory Rate 16 Blood Pressure 134/62 133/68 Blood Pressure [Ri ght Upper Arm] Pulse Oximetry 100 98 91 Oxygen Delivery Me thod 09/04/25 08:15 09/04/25 08:30 09/04/25 08:32 Temperature Pulse Rate 56 L 55 L 55 L Pulse Rate [Right Pulse Oximeter] Respiratory Rate 17 20 Blood Pressure 123/69 Blood Pressure [Ri ght Upper Arm] Pulse Oximetry 98 95 96 Oxygen Delivery Me thod <John Rodriguez MD - Last Filed: 09/04/25 09:36> Course Course ED Course: Additional records reviewed: Prior surgical note from January 2025 when patient had a inguinal hernia repair Additional history from: Coronary artery disease status post stenting, high blood pressure Care impacted by: Coronary disease, hypertension Testing considered but not performed: See ED course Disposition: Consider admission, sign out to oncoming provider Patient presents today with vertigo. He describes constant room spinning dizziness since last night which worsens with moving the head and accompanied by vomiting. No other focal neurologic deficits, no abdominal pain, no diarrhea. On exam here vital is stable, and dizziness worse with turning the head to the left but does report constant dizziness even at rest on repeated questioning. Symptoms likely represent peripheral vertigo, however symptoms are constant and age in known vasculopath with coronary disease, concern also for acute ischemia. Symptoms started last night at 10:00 p.m., patient is not a candidate for lytics, LVO possible. Labs and CTA are ordered, likely will need MRI. Zofran and meclizine ordered for symptom management. <Mati Galeana MD - Last Filed: 09/10/25 15:43> Reevaluation(s) Time of Reevaluation #1: 06:44 <Mati Galeana MD - Last Filed: 09/10/25 15:43> Reevaluation #1: EKG independently interpreted by me demonstrates sinus rhythm rate 59 normal axis, normal intervals, QTC 461, MO 268, QRS 92. Compared to prior of October 2023, no change <Mati Galeana MD - Last Filed: 09/10/25 15:43> Time of Reevaluation #2: 07:16 <Mati Galeana MD - Last Filed: 09/10/25 15:43> Reevaluation #2: Labs independently interpreted by me with mild anemia which is stable the patient, normal basic panel. <Mati Galeana MD - Last Filed: 09/10/25 15:43> Time of Reevaluation #3: 08:00 <Mati Galeana MD - Last Filed: 09/10/25 15:43> Reevaluation #3: Sign out to oncoming provider change of shift <Mati Galeana MD - Last Filed: 09/10/25 15:43> Vital Signs Vital signs: Initial Vital Signs Temperature 96.6 F L 09/04/25 06:10 Temperature Source Temporal Artery Scan 09/04/25 06:10 Pulse Rate 62 09/04/25 06:10 Pulse Rhythm Regular 09/04/25 06:10 Respiratory Rate 17 09/04/25 06:10 Blood Pressure 134/72 09/04/25 06:10 Blood Pressure Mean 92 09/04/25 06:10 Blood Pressure Position Sitting 09/04/25 06:10 Pulse Oximetry 98 09/04/25 06:10 Oxygen Delivery Method Room Air 09/04/25 06:10 Vital Signs Temperature 96.6 F L 09/04/25 06:10 Pulse Rate 62 09/04/25 06:10 Respiratory Rate 17 09/04/25 06:10 Blood Pressure 134/72 09/04/25 06:10 Pulse Oximetry 98 09/04/25 06:10 Oxygen Delivery Method Room Air 09/04/25 06:10 Temperature 96.6 F L 09/04/25 06:10 Pulse Rate 54 L 09/04/25 09:45 Respiratory Rate 14 09/04/25 09:45 Blood Pressure 123/69 09/04/25 08:32 Pulse Oximetry 95 09/04/25 09:45 Oxygen Delivery Method Room Air 09/04/25 06:10 <Mati Galeana MD - Last Filed: 09/10/25 15:43> Initial Vital Signs Temperature 96.6 F L 09/04/25 06:10 Temperature Source Temporal Artery Scan 09/04/25 06:10 Pulse Rate 62 09/04/25 06:10 Pulse Rhythm Regular 09/04/25 06:10 Respiratory Rate 17 09/04/25 06:10 Blood Pressure 134/72 09/04/25 06:10 Blood Pressure Mean 92 09/04/25 06:10 Blood Pressure Position Sitting 09/04/25 06:10 Pulse Oximetry 98 09/04/25 06:10 Oxygen Delivery Method Room Air 09/04/25 06:10 Vital Signs Temperature 96.6 F L 09/04/25 06:10 Pulse Rate 62 09/04/25 06:10 Respiratory Rate 17 09/04/25 06:10 Blood Pressure 134/72 09/04/25 06:10 Pulse Oximetry 98 09/04/25 06:10 Oxygen Delivery Method Room Air 09/04/25 06:10 Temperature 96.6 F L 09/04/25 06:10 Pulse Rate 54 L 09/04/25 09:45 Respiratory Rate 14 09/04/25 09:45 Blood Pressure 123/69 09/04/25 08:32 Pulse Oximetry 95 09/04/25 09:45 Oxygen Delivery Method Room Air 09/04/25 06:10 <John Rodriguez MD - Last Filed: 09/04/25 09:36> Medications Administered Medications: Discontinued Medications Generic Name Dose Route Start Last Admin Trade Name Freq PRN Reason Stop Dose Admin Sodium Chloride 1,000 mls @ 1,000 mls/hr 09/04/25 06:30 09/04/25 07:55 0.9 % Sodium Chloride 1000 Ml IV 09/04/25 07:29 Infused .Q1H LATRICE Infusion Meclizine HCl 25 mg 09/04/25 06:25 09/04/25 06:56 Meclizine Hcl 25 Mg Tablet PO 09/04/25 06:26 25 mg ONCE ONE Administration Ondansetron HCl 4 mg 09/04/25 06:25 09/04/25 06:56 Ondansetron 2 Mg/Ml Inj IVP 09/04/25 06:26 4 mg ONCE ONE Administration <Mati Galeana MD - Last Filed: 09/10/25 15:43> Discontinued Medications Generic Name Dose Route Start Last Admin Trade Name Freq PRN Reason Stop Dose Admin Sodium Chloride 1,000 mls @ 1,000 mls/hr 09/04/25 06:30 09/04/25 07:55 0.9 % Sodium Chloride 1000 Ml IV 09/04/25 07:29 Infused .Q1H LATRICE Infusion Meclizine HCl 25 mg 09/04/25 06:25 09/04/25 06:56 Meclizine Hcl 25 Mg Tablet PO 09/04/25 06:26 25 mg ONCE ONE Administration Ondansetron HCl 4 mg 09/04/25 06:25 09/04/25 06:56 Ondansetron 2 Mg/Ml Inj IVP 09/04/25 06:26 4 mg ONCE ONE Administration <John Rodriguez MD - Last Filed: 09/04/25 09:36> Medical Decision Making [facility] Narrative Medical decision making narrative: Patient is 85-year-old gentleman who presents with vertigo. CT CTA were nonacute. MRI of the head also nonacute. Patient has reproduction of symptoms with head movement. He is safe to go home based on our assessment here in the ER. He is instructed on the Cassie maneuver will follow-up with his primary physician in the next week. <John Rodriguez MD - Last Filed: 09/04/25 09:36> Lab Data Labs: Lab Results 09/04/25 Range/Units 06:30 WBC 6.52 (4.50-11.00) K/uL RBC 3.88 L (4.30-5.90) m/uL Hgb 12.9 L (13.5-17.5) gm/dL Hct 39.8 (37.0-53.0) % MCV 103 H (80-100) fL MCH 33 (26-34) pg MCHC 32 (32-36) gm/dL RDW Coeff of Dung 13.3 (11.5-15.5) % Plt Count 134 L (140-440) K/uL Neut % (Auto) 85.4 H (42.0-72.0) % Lymph % (Auto) 8.1 L (20-44) % [place] % (Auto) 5.2 (0.0-11.0) % Eos % (Auto) 0.6 (0.0-7.0) % Baso % (Auto) 0.5 (0.0-3.0) % Neut # (Auto) 5.60 (1.7-7.0) K/uL Lymph # (Auto) 0.50 L (0.90-2.90) K/uL [place] # (Auto) 0.30 (0.00-0.90) K/UL Eos # (Auto) 0.04 (0.00-0.50) K/uL Baso # (Auto) 0.03 (0.00-0.30) K/uL Abs Immat Gran (auto) 0.01 (0.00-0.30) K/uL Imm/Tot Granulo (auto) 0.2 % INR 1.02 (0.91-1.10) Sodium 135 (135-149) mmol/L Potassium 4.7 (3.6-5.1) mmol/L Chloride 102 (96-114) mmol/L Carbon Dioxide 26 (20-32) mmol/L Anion Gap 7 (7-15) mEq/L BUN 23 (7-30) mg/dL Creatinine 1.0 (0.5-1.5) mg/dL Estimated Creat Clear 61.43 Estimated GFR 75 ml/min Glucose 143 H (60-115) mg/dL Calcium 9.2 (8.4-10.6) mg/dL Magnesium 1.9 (1.5-2.6) mg/dL <Mati Galeana MD - Last Filed: 09/10/25 15:43> Lab Results 09/04/25 Range/Units 06:30 WBC 6.52 (4.50-11.00) K/uL RBC 3.88 L (4.30-5.90) m/uL Hgb 12.9 L (13.5-17.5) gm/dL Hct 39.8 (37.0-53.0) % MCV 103 H (80-100) fL MCH 33 (26-34) pg MCHC 32 (32-36) gm/dL RDW Coeff of Dung 13.3 (11.5-15.5) % Plt Count 134 L (140-440) K/uL Neut % (Auto) 85.4 H (42.0-72.0) % Lymph % (Auto) 8.1 L (20-44) % [place] % (Auto) 5.2 (0.0-11.0) % Eos % (Auto) 0.6 (0.0-7.0) % Baso % (Auto) 0.5 (0.0-3.0) % Neut # (Auto) 5.60 (1.7-7.0) K/uL Lymph # (Auto) 0.50 L (0.90-2.90) K/uL [place] # (Auto) 0.30 (0.00-0.90) K/UL Eos # (Auto) 0.04 (0.00-0.50) K/uL Baso # (Auto) 0.03 (0.00-0.30) K/uL Abs Immat Gran (auto) 0.01 (0.00-0.30) K/uL Imm/Tot Granulo (auto) 0.2 % INR 1.02 (0.91-1.10) Sodium 135 (135-149) mmol/L Potassium 4.7 (3.6-5.1) mmol/L Chloride 102 (96-114) mmol/L Carbon Dioxide 26 (20-32) mmol/L Anion Gap 7 (7-15) mEq/L BUN 23 (7-30) mg/dL Creatinine 1.0 (0.5-1.5) mg/dL Estimated Creat Clear 61.43 Estimated GFR 75 ml/min Glucose 143 H (60-115) mg/dL Calcium 9.2 (8.4-10.6) mg/dL Magnesium 1.9 (1.5-2.6) mg/dL <John Rodriguez MD - Last Filed: 09/04/25 09:36> Discharge Plan Discharge Clinical Impression: Vertigo <Mati Galeana MD - Last Filed: 09/10/25 15:43> Patient Disposition: Home, Self-Care <Mati Galeana MD - Last Filed: 09/10/25 15:43> Condition: Stable <Mati Galeana MD - Last Filed: 09/10/25 15:43> Instructions: Vertigo (ED) <Mati Galeana MD - Last Filed: 09/10/25 15:43> Additional Instructions: Cassie maneuver as discussed continue current activity as tolerated follow-up with your doctor next week. <Mati Galeana MD - Last Filed: 09/10/25 15:43> Activity Level: No Restrictions <Mati Galeana MD - Last Filed: 09/10/25 15:43> No Restrictions <John Rodriguez MD - Last Filed: 09/04/25 09:36> Discharge Diet: Regular <Mati Galeana MD - Last Filed: 09/10/25 15:43> Regular <John Rodriguez MD - Last Filed: 09/04/25 09:36> Prescriptions: No Action levothyroxine 75 mcg tablet 75 mcg PO DAILY rosuvastatin 10 mg tablet 10 mg PO QPM aspirin 81 mg capsule 81 mg PO DAILY cholecalciferol (vitamin D3) 50 mcg (2,000 unit) capsule 2,000 unit PO DAILY melatonin 3 mg capsule 3 mg PO HS <Mati Galeana MD - Last Filed: 09/10/25 15:43> Follow Up/Referrals: Maurice Savage MD [Primary Care Provider, Family Practice] <Mati Galeana MD - Last Filed: 09/10/25 15:43> Stand Alone Forms: My[facility] Info Instructions <Mati Galeana MD - Last Filed: 09/10/25 15:43>
--- NOTE | 2025-09-04 06:25 | CT_ITS ---
Patient: ISRAEL SMITH Facility:?[facility] Patient ID:?[id number] Site Patient ID:?[id number]. Site :?[id number] Study:?CT-Neck Angio Angio 95CC ISOVUE 370 NON ACUTE-09/04/2025 7:52:14 AM Ordering Physician:Chucho Thorne Final Report: DATE: 09/04/2025 CLINICAL HISTORY: Patient with vertigo. TECHNIQUE: Standard helical CT image acquisition through the head and neck was performed after intravenous contrast bolus enhancement. 2D and 3D MIP images for post- processing were performed and interpreted on an independent workstation and 3D images were permanently archived. COMPARISON: CT same day. FINDINGS: The origins of the great vessels from the aortic arch are patent. The origin of the right vertebral artery is patent. The origin of the left vertebral artery demonstrates mild narrowing. The common carotid arteries are patent There is plaque without stenosis at the origin of the right internal carotid artery. There is plaque without stenosis at the origin of the left internal carotid artery. The rest of the cervical segments of the internal carotid arteries are patent up to their intracranial segments. The intracranial segments of the internal carotid arteries are patent. The vertebral arteries are codominant. The cervical segments of the vertebral arteries are patent. The intracranial segments of the vertebral arteries are patent. The middle cerebral arteries are normal without aneurysm or proximal occlusion identified. The anterior cerebral arteries are normal without aneurysm or proximal occlusion identified. The anterior communicating artery is well visualized and appears normal. The basilar artery is normal without aneurysm or occlusion. The posterior cerebral arteries are normal without aneurysm or proximal occlusion. There is normal opacification of major intracranial venous structures. The visualized lung apices are unremarkable The thyroid gland is unremarkable. The soft tissues of the neck are unremarkable. There are degenerative changes in the cervical spine. IMPRESSION: Mild narrowing at the origin of the left vertebral artery. Patent rest of the cervical and proximal intracranial vasculature. Please note that all CT scans at this facility use dose modulation, iterative reconstruction, and/or weight-based dosing when appropriate to reduce radiation dose to as low as reasonably achievable. Dictated by Honey Cazares MD @ 09/04/2025 8:42:51 PM (Electronic Signature)
--- NOTE | 2025-09-04 06:25 | CT_ITS ---
Patient: ISRAEL SMITH Facility:?[facility] Patient ID:?[id number] Site Patient ID:?[id number]. Site :?[id number] Study:?CT-Head Angio 95CC ISOVUE 370 NON ACUTE-09/04/2025 7:51:47 AM Ordering Physician:Chucho Thorne Final Report: DATE: 09/04/2025 CLINICAL HISTORY: Patient with vertigo. TECHNIQUE: Standard helical CT image acquisition through the head and neck was performed after intravenous contrast bolus enhancement. 2D and 3D MIP images for post- processing were performed and interpreted on an independent workstation and 3D images were permanently archived. COMPARISON: CT same day. FINDINGS: The origins of the great vessels from the aortic arch are patent. The origin of the right vertebral artery is patent. The origin of the left vertebral artery demonstrates mild narrowing. The common carotid arteries are patent There is plaque without stenosis at the origin of the right internal carotid artery. There is plaque without stenosis at the origin of the left internal carotid artery. The rest of the cervical segments of the internal carotid arteries are patent up to their intracranial segments. The intracranial segments of the internal carotid arteries are patent. The vertebral arteries are codominant. The cervical segments of the vertebral arteries are patent. The intracranial segments of the vertebral arteries are patent. The middle cerebral arteries are normal without aneurysm or proximal occlusion identified. The anterior cerebral arteries are normal without aneurysm or proximal occlusion identified. The anterior communicating artery is well visualized and appears normal. The basilar artery is normal without aneurysm or occlusion. The posterior cerebral arteries are normal without aneurysm or proximal occlusion. There is normal opacification of major intracranial venous structures. The visualized lung apices are unremarkable The thyroid gland is unremarkable. The soft tissues of the neck are unremarkable. There are degenerative changes in the cervical spine. IMPRESSION: Mild narrowing at the origin of the left vertebral artery. Patent rest of the cervical and proximal intracranial vasculature. Please note that all CT scans at this facility use dose modulation, iterative reconstruction, and/or weight-based dosing when appropriate to reduce radiation dose to as low as reasonably achievable. Dictated by Honey Cazares MD @ 09/04/2025 8:43:23 PM (Electronic Signature)
--- NOTE | 2025-09-04 06:25 | CRLHL7_ITS ---
For Patients: As a result of the Century Cures Act, medical imaging exams and procedure reports are released immediately into your electronic medical record. You may view this report before your referring provider. If you have questions, please contact your health care provider. INDICATION: Vertigo COMPARISON: None TECHNIQUE: CT examination of the head was performed as axial sections without intravenous contrast. Images were obtained from the vertex of the skull through the skull base. Please note that all CT scans at this facility use dose modulation, iterative reconstruction, and/or weight-based dosing when appropriate to reduce radiation dose to as low as reasonably achievable. FINDINGS: The brain shows no sign of mass lesion, mass effect, hemorrhage, or edema. There are involutional changes. There is moderate cortical atrophy and there is moderate white matter disease. There is no hydrocephalus. The visualized portions of the orbits are normal in appearance. The osseous structures are normal in appearance with no sign of abnormality in the skull base or calvarium. Intracranial atherosclerosis IMPRESSION: Involutional changes. No acute-appearing findings. Please note that all CT scans at this facility use dose modulation, iterative reconstruction, and/or weight-based dosing when appropriate to reduce radiation dose to as low as reasonably achievable. Dictated by Baudilio Ruffin MD @ 09/04/2025 7:58:50 AM (Electronically Signed)
[2025-09-04 06:52] LABS: Hematocrit* 39.8 % (37.0-53.0); Hemoglobin* 12.9 gm/dL (13.5-17.5); Immature Granulocytes Abs Auto 0.01 K/uL (0.00-0.30); Immature Granulocytes Pct Auto 0.2 %; Mean Corpuscular HGB Conc 32 gm/dL (32-36); Mean Corpuscular Hemoglobin 33 pg (26-34); Mean Corpuscular Volume 103 fL (80-100); RDW Coefficient of Variation % 13.3 % (11.5-15.5); Red Blood Count* 3.88 m/uL (4.30-5.90); White Blood Count* 6.52 K/uL (4.50-11.00)
[2025-09-04 06:55] LABS: Lymphocytes Absolute Auto 0.50 K/uL (0.90-2.90); Slide Review Reflex No
[2025-09-04] MEDS: ONDANSETRON 2 MG/ML inj 4 MG IVP (06:56)
[2025-09-04] MEDS: MECLIZINE HCL 25 MG TABLET PO (06:56)
[2025-09-04 07:08] LABS: Chloride* 102 mmol/L (96-114)
[2025-09-04 07:09] LABS: Potassium* 4.7 mmol/L (3.6-5.1); Sodium* 135 mmol/L (135-149)
[2025-09-04 07:11] LABS: Blood Urea Nitrogen* 23 mg/dL (7-30); Creatinine* 1.0 mg/dL (0.5-1.5); Est. Creatinine Clearance* 61.43; Estimated Glomerular Filt Rate 75 ml/min
[2025-09-04 07:12] LABS: Anion Gap 7 mEq/L (7-15); Calcium* 9.2 mg/dL (8.4-10.6); Carbon Dioxide* 26 mmol/L (20-32); Glucose* 143 mg/dL (60-115); INR 1.02 (0.91-1.10); Prothrombin Time 14.2 Seconds
--- NOTE | 2025-09-04 07:52 | CRLHL7_ITS ---
For Patients: As a result of the Century Cures Act, medical imaging exams and procedure reports are released immediately into your electronic medical record. You may view this report before your referring provider. If you have questions, please contact your health care provider. Indication: Dizziness. Technique: Noncontrast sagittal T1 weighted, axial FLAIR, axial T2 weighted, and axial diffusion weighted sequences are provided. Comparison: CT 09/04/2025. Findings: No mass effect or midline shift. No hydrocephalus. Mild generalized parenchymal volume loss. Multiple scattered foci of T2 prolongation in the subcortical white matter of both cerebral hemispheres that are nonspecific. No suspicious extra-axial collection or acute intracranial hemorrhage. The pituitary gland, optic chiasm, pineal gland, and cerebellar tonsils are unremarkable. Prominent perivascular spaces. There is no evidence of diffusion restriction to suggest acute ischemia. Incidental 6 mm retention cyst in the right nasopharyngeal mucosa. Calvarial bone marrow signal is within normal limits. The scalp and soft tissues are grossly normal. Leftward deviation of the nasal septum with septal spur. Polypoid mucosal thickening in the maxillary sinuses bilaterally and right sphenoid sinus. Impression: 1. No evidence of acute intracranial abnormality. 2. Mild generalized parenchymal volume loss. Mild to moderate presumed chronic small-vessel ischemic changes. Dictated by Ismael Cole MD @ 09/04/2025 9:17:34 AM (Electronically Signed)
== END 2025-09-04 10:51 | disposition home or self-care (01) ==
PROVIDERS: Emergency Provider Family Medicine; PCP Family Medicine
DX: R42 Dizziness and giddiness (principal); R11.2 Nausea with vomiting, unspecified; I10 Essential (primary) hypertension; I25.10 Atherosclerotic heart disease of native coronary artery without angina pectoris; Z79.82 Long term (current) use of aspirin; Z88.1 Allergy status to other antibiotic agents
CPT/HCPCS: 36415; 70450; 70496; 70498; 70551; 80048; 83735; 85025; 85610; 93005; 94761; 96361; 96374; 99284; 99285; A9270; J2405; J7030; Q9967